=== PATIENT | female | born 1955 | race Caucasian/White ===

== ENCOUNTER 2020-11-02 20:11 | Inpatient (IN) | payer MEDICARE ==
[~2020-11-02] VITALS: Ht 160 cm; Wt 80.2 kg
[2020-11-02 20:52] LABS: HEMATOCRIT 45.1 % (36.0-48.0); HEMOGLOBIN 14.8 g/dL (12-16); LYMPHOCYTE ABS# 2.55 10x3/uL (1.18-3.74); MCH 29.4 pg (26.0-34.0); MCHC 32.8 g/dL (31.0-37.0); MCV 89.7 fL (80.0-100.0); MEAN PLATELET VOLUME 10.3 fL (7.4-10.4); NEUTROPHIL ABS# 15.59 10x3/uL (1.56-6.13); PLATELET COUNT 243 10x3/uL (130-400); RBC 5.03 10x6/uL (4.00-5.40); RDW 13.6 % (11.5-14.5); WBC 20.2 10x3/uL (4.8-10.8)
[2020-11-02 20:57] LABS: CALC OSMOLALITY 292 mosm/kg (275-300); CALCIUM 10.3 mg/dL (8.5-10.1); CHLORIDE - SERUM 104 mmol/L (98-107); CREATININE - SERUM 2.4 mg/dL (0.6-1.3); GLUCOSE 177 mg/dL (74-106); POTASSIUM - SERUM 4.2 mmol/L (3.5-5.1); SODIUM 141 mmol/L (136-145); UREA NITROGEN 34 mg/dL (7-18); eGFR NON AFRICAN AMERICAN 22 mL/min (90-120)
[2020-11-02 21:06] LABS: ALBUMIN 3.5 g/dL (3.4-5.0); ALKALINE PHOSPHATASE 143 U/L (30-120); ALT (SGPT) 37 U/L (10-68); AMYLASE - SERUM 72 U/L (25-115); LIPASE 204 U/L (73-393); PROTEIN - SERUM 7.2 g/dL (6.4-8.2)
[2020-11-02 21:08] LABS: TROPONIN-I < 0.017 ng/mL (0.000-0.060)
[2020-11-02 21:16] LABS: BILIRUBIN NEGATIVE (NEGATIVE); KETONE NEGATIVE (NEGATIVE); NITRITE NEGATIVE (NEGATIVE); UROBILINOGEN NORMAL mg/dL (< 2)
[2020-11-02 21:17] LABS: BACTERIA MODERATE HPF (NONE SEEN)
[2020-11-02 21:20] LABS: BASOPHILS 1 % (0-2); EOSINOPHILS 1 % (0-7); LYMPHOCYTES 14 % (15-50); MONOCYTES 2 % (2-11); NEUTROPHILS 82 % (40-80); PLATELET ESTIMATE NORMAL
--- NOTE | 2020-11-03 01:00 | NUR ---
PT ADMITTED FROM ER TO ROOM 2108. PT AWAKE, ALERT,ORIENTED. RESP EVEN AND UNLABORED ON RA. C/O PAIN TO ABDOMEN AND EPIGASTRIC REGION SEE MAR-WILL GIVE ZOFRAN AND MORPHINE MEL. 20GA TO LEFT WRIST PATENT. NO FURTHER NEEDS VOICED AT THIS TIME.
[2020-11-03] MEDS ORDERED: NEURONTIN 300300 MG PO (01:06)
[2020-11-03] MEDS ORDERED: TRAZODONE HCL150 MG PO (01:06)
[2020-11-03] MEDS ORDERED: CYMBALTA60 MG PO (01:07)
[2020-11-03] MEDS ORDERED: LOMOTIL 2.5-0.1 EAC1 PO (01:07)
[2020-11-03] MEDS ORDERED: FUROSEMIDE20 MG PO (01:07)
[2020-11-03] MEDS ORDERED: KLOR-CON 1010 MEQ PO (01:08)
[2020-11-03] MEDS ORDERED: LISINOPRIL20 MG PO (01:08)
[2020-11-03] MEDS ORDERED: HYDROCODONE-AC1 EAC2 PO (01:09)
[2020-11-03] MEDS ORDERED: MYLANTA / MAALO30 ML PO (01:10)
[2020-11-03] MEDS ORDERED: PREVACID30 MG PO (01:10)
[2020-11-03] MEDS ORDERED: PHENERGAN25 M1 PO (01:10)
[2020-11-03] MEDS ORDERED: PLAVIX75 MG PO (01:11)
[2020-11-03] MEDS ORDERED: CYCLOBENZAPRINE10 MG PO (01:11)
[2020-11-03] MEDS ORDERED: LIPITOR20 MG PO (01:11)
[2020-11-03 01:32] VITALS: BP 148/81; BMI 31.2
[2020-11-03 04:54] VITALS: BP 128/66
[2020-11-03 05:26] LABS: BASOPHILS 0.5 % (0-2); EOSINOPHILS 6.7 % (0-7); HEMATOCRIT 37.7 % (36.0-48.0); IMMATURE GRANULOCYTES 0.2 % (0-5); LYMPHOCYTE ABS# 2.31 10x3/uL (1.18-3.74); LYMPHOCYTES 22.8 % (15-50); MCH 28.8 pg (26.0-34.0); MCHC 31.3 g/dL (31.0-37.0); MEAN PLATELET VOLUME 10.4 fL (7.4-10.4); MONOCYTES 5.6 % (2-11); NEUTROPHIL ABS# 6.52 10x3/uL (1.56-6.13); NEUTROPHILS 64.2 % (40-80); PLATELET COUNT 196 10x3/uL (130-400); RDW 13.7 % (11.5-14.5)
[2020-11-03 05:39] LABS: HEMOGLOBIN 11.8 g/dL (12-16); WBC 10.2 10x3/uL (4.8-10.8)
[2020-11-03 05:49] LABS: CALCIUM 8.6 mg/dL (8.5-10.1); CARBON DIOXIDE 28.8 mmol/L (21.0-32.0); CREATININE - SERUM 2.2 mg/dL (0.6-1.3); PHOSPHOROUS 4.4 mg/dL (2.5-4.9); POTASSIUM - SERUM 3.8 mmol/L (3.5-5.1)
[2020-11-03 10:19] VITALS: BP 124/66
[2020-11-03 10:50] VITALS: Ht 160 cm; Wt 80.2 kg
[2020-11-03 12:49] VITALS: BP 131/67
[2020-11-03 16:24] VITALS: BP 139/73
--- NOTE | 2020-11-03 19:08 | NUR ---
LYING IN BED AWAKE, ALERT, ORIENTED. RESP EVEN AND UNLABORED ON RA. NO DISTRESS NOTED. PT REQUEST PAIN MED--MORPHINE ADMINISTERED/ORDER, PT TOLERATED ALL WELL. NO FURTHER NEEDS VOICED AT THIS TIME.
[2020-11-03 20:00] VITALS: BP 148/73
[2020-11-04 04:12] VITALS: BP 150/80
[2020-11-04 05:05] LABS: BASOPHILS 0.9 % (0-2); EOSINOPHILS 14.3 % (0-7); HEMATOCRIT 34.9 % (36.0-48.0); HEMOGLOBIN 10.9 g/dL (12-16); IMMATURE GRANULOCYTES 0.2 % (0-5); LYMPHOCYTE ABS# 1.82 10x3/uL (1.18-3.74); LYMPHOCYTES 32.2 % (15-50); MCH 28.8 pg (26.0-34.0); MCHC 31.2 g/dL (31.0-37.0); MCV 92.3 fL (80.0-100.0); MEAN PLATELET VOLUME 10.2 fL (7.4-10.4); MONOCYTES 7.2 % (2-11); NEUTROPHIL ABS# 2.56 10x3/uL (1.56-6.13); NEUTROPHILS 45.2 % (40-80); PLATELET COUNT 165 10x3/uL (130-400); RBC 3.78 10x6/uL (4.00-5.40); RDW 13.4 % (11.5-14.5)
[2020-11-04 05:38] LABS: WBC 5.7 10x3/uL (4.8-10.8)
[2020-11-04 05:39] LABS: ANION GAP 7.4 mmol/L (8-16); CALCIUM 7.8 mg/dL (8.5-10.1); CARBON DIOXIDE 26.6 mmol/L (21.0-32.0); CREATININE - SERUM 1.9 mg/dL (0.6-1.3); MAGNESIUM - SERUM 1.5 mg/dL (1.8-2.4); PHOSPHOROUS 3.6 mg/dL (2.5-4.9)
--- NOTE | 2020-11-04 06:29 | NUR ---
LYING IN BED W/EYES CLOSED, RESP EVEN AND UNLABORED ON RA. AROUSES EASILY W/VERBAL STIMULI. NO DISTRESS NOTED. PT HAS RESTED WELL TONIGHT.
[2020-11-04 07:58] VITALS: BP 175/88
[2020-11-04] MEDS ORDERED: NICODERM CQ1 EAC3 TRANSDERM (10:05)
[2020-11-04] MEDS ORDERED: MIRALAX17 GM PO (10:07)
[2020-11-04] MEDS ORDERED: COLACE100 MG PO (10:07)
[2020-11-04] MEDS ORDERED: FLORAJEN3 CAPS460 MG PO (10:07)
[2020-11-04] MEDS ORDERED: REGLAN10 MG PO (10:07)
[2020-11-04] MEDS ORDERED: FLAGYL500 MG PO (10:10)
[2020-11-04] MEDS ORDERED: LEVAQUIN750 MG PO (10:10)
--- NOTE | 2020-11-04 13:26 | NUR ---
1125-REVIEWED DISCHAGE WITH PT & SISTER. IV REMOVED FROM LEFT HAND. CATHETER INTACT. TOLERATED CRACKERS & JELLO. WISHED WELL. TO PRIVATE VEHICLE PER WHEELCHAIR
--- NOTE | 2020-11-06 20:30 | MORECARE ---
CASE MANAGEMENT DISCHARGE SUMMARY PATIENT: SY PINTO UNIT: [id number] ADM DATE: 11/02/20 AGE: 65 : 59 SEX: F ROOM/BED: D.210 AUTHOR: ANDREW,DOC PHYSICIAN: REFERRING PHYSICIAN: JOAQUÍN RAY MD DATE OF SERVICE: 11/06/20 Case Management Discharge Planning Summary DCP REVIEW SUMMARY ANTICIPATED D/C DATE: EXPECTED LOS : CASE STATUS: DCP Initiated INITIAL REVIEW: 11/03/2020 INITIAL REVIEWER: Melida Lee FINAL DISCHARGE DISPOSITION: : FINAL REVIEWER: FINAL REVIEW DATE: DCP Focus Questions & Answers - Added on: QUESTION: ANSWER : PATIENT: SY PINTO ENCOUNTER: [id number] MEDICAL RECORD#: [id number] ADMISSION DATE: 11/02/2020 DISCHARGE DATE: 11/04/2020 ATTENDING MD: JOAQUÍN SABA : AGE: 65 MARITAL STATUS: U DC PLAN ID: [id number] FACILITY: [facility] PRINTED ON: 11/06/20 20:30 CT All edits/amendments must be made on the electronic document DICTATION DATE: 11/06/202029 SULFUR BURNER: DM 11/06/202029 RPT#: [id number] DC DATE:11/04/20 STATUS: DIS IN [facility] [address] [place] [address] END OF REPORT
--- NOTE | 2020-11-08 08:39 | MORECARE ---
CASE MANAGEMENT DISCHARGE SUMMARY PATIENT: SY PINTO UNIT: [id number] ADM DATE: 11/02/20 AGE: 65 : 59 SEX: F ROOM/BED: D.210 AUTHOR: ANDREW,DOC PHYSICIAN: REFERRING PHYSICIAN: JOAQUÍN RAY MD DATE OF SERVICE: 11/08/20 Case Management Discharge Planning Summary DCP REVIEW SUMMARY ANTICIPATED D/C DATE: EXPECTED LOS : CASE STATUS: DCP Initiated INITIAL REVIEW: 11/03/2020 INITIAL REVIEWER: Melida Lee FINAL DISCHARGE DISPOSITION: : FINAL REVIEWER: FINAL REVIEW DATE: DCP Focus Questions & Answers - Added on: QUESTION: ANSWER : PATIENT: SY PINTO ENCOUNTER: [id number] MEDICAL RECORD#: [id number] ADMISSION DATE: 11/02/2020 DISCHARGE DATE: 11/04/2020 ATTENDING MD: JOAQUÍN SABA : AGE: 65 MARITAL STATUS: U DC PLAN ID: [id number] FACILITY: [facility] PRINTED ON: 11/08/20 8:39 CT All edits/amendments must be made on the electronic document DICTATION DATE: 11/08/20838 BARREL LOADER AND CLEANER: DM 11/08/20838 RPT#: [id number] DC DATE:11/04/20 STATUS: DIS IN [facility] [address] [place] [address] END OF REPORT
[2020-11-08 17:10] LABS: AEROBE ID Preliminary report (()); RESULT 1 Gram positive rods (())
[2020-11-08 17:10] LABS: AEROBE ID Preliminary report (())
== END 2020-11-04 16:27 | disposition home or self-care (01) | DRG 690 ==
LOC: D.ER 20:11 → D.M2 23:34
PROVIDERS: Family Medicine; ADMIT Emergency Medicine; ATTEND Emergency Medicine
DX: N39.0 Urinary tract infection, site not specified (principal); N17.9 Acute kidney failure, unspecified; K52.9 Noninfective gastroenteritis and colitis, unspecified; I10 Essential (primary) hypertension; E78.5 Hyperlipidemia, unspecified; J44.9 Chronic obstructive pulmonary disease, unspecified; F17.200 Nicotine dependence, unspecified, uncomplicated; E03.9 Hypothyroidism, unspecified; G89.29 Other chronic pain; K31.84 Gastroparesis; Z86.73 Personal history of transient ischemic attack (TIA), and cerebral infarction without residual deficits; Z95.0 Presence of cardiac pacemaker